=== PATIENT | female | born 1980 | race Caucasian/White ===

== ENCOUNTER → 2018-11-05 | Outpatient (CLI) | payer BC ==
[~2018-11-05] MED LIST: ACET325 PO; DIAZ5 PO; HYDACE5 PO; HYDR1TAB94 PO
[2018-11-05 16:53] LABS: Source, Urine Clean Catch
[2018-11-05 18:08] LABS: Bilirubin, Urine Neg (Neg); Blood, Urine Neg (Neg); Glucose Qualitative, Urine Neg (Neg); Ketones, Urine Neg (Neg); Leukocyte Esterase, Urine Neg (Neg); Nitrite, Urine Neg (Neg); Protein, Urine Neg (Neg); Specific Gravity, Urine 1.005 (1.003-1.022); Urobilinogen, Urine NORM (Normal)
[2018-11-05 18:27] LABS: Appearance, Urine Clear (Clear); Color, Urine Pale Yellow (P-Yellow)
[2018-11-09 16:06] LABS: HPV 16 Negative (Negative); HPV 18 Negative (Negative); HPV OTHER HR TYPES Negative (Negative)
== END | disposition home or self-care (01) ==
LOC: LAB 15:04 → LAB SHORT 15:04
PROVIDERS: Obstetrics & Gynecology
DX: Z01.419 Encounter for gynecological examination (general) (routine) without abnormal findings (principal); R30.0 Dysuria
CPT/HCPCS: 81003; 87624; G0123

== ENCOUNTER → 2019-07-20 | Outpatient (CLI) | payer BC ==
[2019-07-20 15:24] LABS: Anion Gap 10 mmol/L (6-16); Blood Urea Nitrogen 6 mg/dL (8-24); Bun/Creatinine Ratio 5.9 (12.0-20.0); CO2, Blood 26 mmol/L (21-32); Calcium, Blood 9.2 mg/dL (8.5-10.1); Chloride, Blood 96 mmol/L (98-108); Creatinine, Blood 1.02 mg/dL (0.40-1.00); Glomerular Filtration Rate >60 (60-); Glucose, Blood 103 mg/dL (70-99); Sodium, Blood 132 mmol/L (136-145)
[2019-07-20 15:28] LABS: BASOPHILS ABSOLUTE AUTO 0.05 K/mm3 (0.00-0.23); BASOPHILS PERCENT AUTO 0 % (0-2); EOSINOPHILS ABSOLUTE AUTO 0.01 K/mm3 (0.00-0.68); EOSINOPHILS PERCENT AUTO 0 % (0-6); Hematocrit 43.5 % (33.0-51.0); Hemoglobin 15.2 g/dL (11.5-16.0); IMMATURE GRAN ABSOLUTE AUTO 0.04 K/mm3 (0.00-0.10); IMMATURE GRAN PERCENT AUTO 0 % (0-1); LYMPHOCYTES ABSOLUTE AUTO 0.88 K/mm3 (0.84-5.20); LYMPHOCYTES PERCENT AUTO 7 % (21-46); MONOCYTES ABSOLUTE AUTO 2.01 K/mm3 (0.16-1.47); MONOCYTES PERCENT AUTO 17 % (4-13); Mean Corpuscular HGB 31.8 pg (26.0-34.0); Mean Corpuscular HGB Conc 34.9 g/dL (31.5-36.5); Mean Corpuscular Volume 91 fL (80-100); Mean Platelet Volume 9.1 fL (9.1-12.4); NEUTROPHILS ABSOLUTE AUTO 8.92 K/mm3 (1.96-9.15); NEUTROPHILS PERCENT AUTO 75 % (41-73); Platelet Count 245 K/mm3 (150-400); RDW Coefficient Variation 12.6 % (11.7-14.2); RDW Standard Deviation 41.6 fL (35.1-46.3); Red Blood Cell Count 4.78 M/mm3 (3.80-5.20); White Blood Cell Count 11.91 K/mm3 (4.00-11.30)
== END | disposition home or self-care (01) ==
LOC: LAB EV 15:16 → LAB SHORT 15:16
PROVIDERS: Family Medicine
DX: N12 Tubulo-interstitial nephritis, not specified as acute or chronic (principal)
CPT/HCPCS: 80048; 85025; 87077; 87086; 87186

== ENCOUNTER → 2019-08-26 | Outpatient (CLI) | payer BC | END | disposition home or self-care (01) | LOC: LAB EV 13:05 → LAB SHORT 13:05 | DX: N39.0 Urinary tract infection, site not specified (principal) | CPT/HCPCS: 87077; 87086; 87186 ==

== ENCOUNTER → 2019-09-21 | Outpatient (CLI) | payer BC | LOC: LAB 19:01 → LAB SHORT 19:01 | DX: R30.9 Painful micturition, unspecified (principal) | CPT/HCPCS: 87086 ==

== ENCOUNTER 2020-12-16 08:26 | Observation (INO) | payer BC ==
[~2020-12-16] VITALS: Ht 165.1 cm; Wt 63.5 kg
[2020-12-16 09:19] LABS: BASOPHILS ABSOLUTE AUTO 0.07 K/mm3 (0.00-0.23); BASOPHILS PERCENT AUTO 1 % (0-2); EOSINOPHILS ABSOLUTE AUTO 0.08 K/mm3 (0.00-0.68); EOSINOPHILS PERCENT AUTO 1 % (0-6); Hematocrit 38.2 % (33.0-51.0); Hemoglobin 12.9 g/dL (11.5-16.0); IMMATURE GRAN ABSOLUTE AUTO 0.02 K/mm3 (0.00-0.10); IMMATURE GRAN PERCENT AUTO 0 % (0-1); LYMPHOCYTES ABSOLUTE AUTO 1.72 K/mm3 (0.84-5.20); LYMPHOCYTES PERCENT AUTO 16 % (21-46); MONOCYTES ABSOLUTE AUTO 0.85 K/mm3 (0.16-1.47); MONOCYTES PERCENT AUTO 8 % (4-13); Mean Corpuscular HGB 31.5 pg (26.0-34.0); Mean Corpuscular HGB Conc 33.8 g/dL (31.5-36.5); Mean Corpuscular Volume 93 fL (80-100); NEUTROPHILS ABSOLUTE AUTO 8.17 K/mm3 (1.96-9.15); NEUTROPHILS PERCENT AUTO 75 % (41-73); RDW Coefficient Variation 13.7 % (11.7-14.2); RDW Standard Deviation 46.6 fL (35.1-46.3); Red Blood Cell Count 4.09 M/mm3 (3.80-5.20); White Blood Cell Count 10.91 K/mm3 (4.00-11.30)
[2020-12-16 09:30] LABS: Alanine Aminotransfer (ALT/SGP 18 U/L (12-78); Albumin, Blood 3.9 g/dL (3.4-5.0); Albumin/Globulin Ratio 1.2 (0.8-1.8); Alk Phos 38 U/L (50-136); Anion Gap 5 mmol/L (6-16); Aspartate Aminotrans (AST/SGOT 31 U/L (12-37); Bilirubin, Total 0.5 mg/dL (0.1-1.0); Blood Urea Nitrogen 12 mg/dL (8-24); CO2, Blood 25 mmol/L (21-32); Calcium, Blood 8.3 mg/dL (8.5-10.1); Chloride, Blood 107 mmol/L (98-108); Creatinine, Blood 0.71 mg/dL (0.40-1.00); Globulin, Blood 3.3 g/dL (2.2-4.0); Glomerular Filtration Rate >60 (60-); Glucose, Blood 91 mg/dL (70-99); Potassium, Blood 4.9 mmol/L (3.5-5.5); Sodium, Blood 137 mmol/L (136-145); Total Protein, Blood 7.2 g/dL (6.4-8.2)
[2020-12-16 09:41] LABS: Source, Urine Clean Catch
[2020-12-16 09:42] LABS: Mean Platelet Volume 10.2 fL (9.1-12.4); Platelet Count 170 K/mm3 (150-400)
[2020-12-16 09:45] LABS: Bilirubin, Urine Neg (Neg); Blood, Urine 2+ (Neg); Glucose Qualitative, Urine Neg (Neg); Ketones, Urine Neg (Neg); Leukocyte Esterase, Urine 1+ (Neg); Nitrite, Urine Pos (Neg); Protein, Urine 1+ (Neg); Specific Gravity, Urine 1.015 (1.003-1.022); Urobilinogen, Urine NORM (Normal); pH, Urine 6.5 (5.0-8.0)
[2020-12-16 09:51] LABS: Appearance, Urine Hazy (Clear); Color, Urine Yellow (P-Yellow)
[2020-12-16 09:52] LABS: Red Blood Cells, Urine 0-2 /hpf (0-2)
[2020-12-16 09:53] LABS: Bacteria Many /hpf; Squamous Epithelial Cells Mod /hpf (Few)
--- NOTE | 2020-12-16 12:30 | NUR ---
ADMISSION: REPORT RECEIVED FROM [employer]. PT TO UNIT AT ABOUT 1210. UPON ASSESSMENT, VSS, A/O. PT REPORTS PAIN TOLERABLE, ABD IS TENDER TO PALPATION. PT DENIES ANY VAGINAL BLEED. SPOKE WITH DR CARRILLO AT THIS TIME. PLAN TO MONITOR VS Q2 HRS AND AWAIT CBC RESULTS. WILL CTM.
[2020-12-16 12:58] LABS: SARS-Cov-2 (COVID-19) PCR, MMC NEGATIVE (NEGATIVE)
[2020-12-16 13:13] LABS: Hematocrit 33.5 % (33.0-51.0); Hemoglobin 11.5 g/dL (11.5-16.0); Mean Corpuscular HGB 31.9 pg (26.0-34.0); Mean Corpuscular HGB Conc 34.3 g/dL (31.5-36.5); Mean Corpuscular Volume 93 fL (80-100); Mean Platelet Volume 9.5 fL (9.1-12.4); Platelet Count 246 K/mm3 (150-400); RDW Coefficient Variation 13.7 % (11.7-14.2); RDW Standard Deviation 47.2 fL (35.1-46.3); Red Blood Cell Count 3.61 M/mm3 (3.80-5.20)
[2020-12-16 17:14] LABS: Hematocrit 32.4 % (33.0-51.0); Mean Corpuscular HGB 31.9 pg (26.0-34.0); Mean Corpuscular Volume 94 fL (80-100); Mean Platelet Volume 9.6 fL (9.1-12.4); Platelet Count 227 K/mm3 (150-400); RDW Coefficient Variation 13.8 % (11.7-14.2); RDW Standard Deviation 46.9 fL (35.1-46.3); Red Blood Cell Count 3.45 M/mm3 (3.80-5.20); White Blood Cell Count 9.37 K/mm3 (4.00-11.30)
--- NOTE | 2020-12-16 18:36 | NUR ---
DISCHARGE: PT DENIES DIZZINESS, VSS. PACKET PRINTED AND PT EDUCATED. IV DC'D WNL. PER DR. CARRILLO, PAIN MED TO BE E-FAXED TO [facility]. PT LEFT UNIT AT ABOUT 1750 ON FOOT WITH . PT DENIED NEED FOR WHEELCHAIR.
== END 2020-12-16 18:00 | disposition home or self-care (01) ==
LOC: ER 08:26 → ERHOLD 08:27 → SURS 11:54
PROVIDERS: Physician Assistant; ADMIT Obstetrics & Gynecology
DX: N83.201 Unspecified ovarian cyst, right side (principal); F17.200 Nicotine dependence, unspecified, uncomplicated; Z20.822 Contact with and (suspected) exposure to COVID-19
CPT/HCPCS: 36415; 76830; 76856; 80053; 81001; 81025; 83690; 85025; 85027; 87077; 87086; 87186; 93005; 93010; 96374; 96376; 99285-25; G0378; J3010; J7030; J7120; U0004

== ENCOUNTER 2021-02-05 11:46 | Day surgery (SDC) | payer BC ==
[~2021-02-05] VITALS: Ht 165.1 cm; Wt 61.1 kg
[2021-02-05] MEDS ORDERED: PROG100 PO (12:14)
[2021-02-05] MEDS ORDERED: ERGO400 PO (12:15)
[2021-02-05] MEDS ORDERED: Vitamin B Comple1 EA PO (12:15)
--- NOTE | 2021-02-05 12:46 | NUR ---
Ambulatory in Day Surgery History, Chart, Medications and Allergies reviewed before start of procedure.Pre-Op teaching done. Pt verbalizes understanding. Patient States Post-Procedure ride home has been arranged.
--- NOTE | 2021-02-05 16:56 | NUR ---
PT TO STEP, REPORTS INCREASED LOW ABD PAIN. MEDICATED PER ORDERS. DENIES NAUSEA. GIVEN PO FLUIDS AND PUDDING AND CRACKERS PER REQUEST. PT TOELRATES WELL. DRESSING X 3 TO ABD, CDI. GIVEN RX AND DC INSTRUCTIONS. PT VERBALIZES AN UNDERSTANDING s QUESTIONS. IV DC'D, CATH INTACT AND PRESSURE DRESSING APPLIED. DRESSED c ASSITANCE BY RN. TRANSFERS TO SLOWLY. REPORTS MILD PAIN c MOVEMENT, STS " IM FINE". OTD IN NAD VIA , ESCORTED BY RENATA. ADDITIONAL INSTRUCTIONS. GIVEN TO . VERBALIZES AN UNDERSTANDING. NO QUESTIONS. HOME c SAFE RIDE HOME.
--- NOTE | 2021-02-06 14:52 | NUR ---
02/06/21 1452 Roxanna Sweeney VERIFICATIONS: EDIT CHART.
== END 2021-02-05 23:02 | disposition home or self-care (01) ==
LOC: ORSCMMR 11:46
PROVIDERS: Obstetrics & Gynecology
PROC: 0UB14ZZ Excision of Left Ovary, Percutaneous Endoscopic Approach (ICD-10-PCS; principal; 2021-02-05 11:45)
PROC: 0UB64ZZ Excision of Left Fallopian Tube, Percutaneous Endoscopic Approach (ICD-10-PCS; principal; 2021-02-05 11:45)
PROC: 0DJD8ZZ Inspection of Lower Intestinal Tract, Via Natural or Artificial Opening Endoscopic (ICD-10-PCS; principal; 2021-02-05 11:45)
DX: N83.8 Other noninflammatory disorders of ovary, fallopian tube and broad ligament (principal); F17.210 Nicotine dependence, cigarettes, uncomplicated
CPT/HCPCS: 88305; 88331; A9270; J0171; J1100; J1885; J2250; J2405; J2704; J3010; J7120

== ENCOUNTER → 2022-06-27 | Outpatient (CLI) | payer BC ==
[~2022-06-27] MED LIST changes: +ERGO400 PO; +PROG100 PO; +Vitamin B Comple1 EA PO
[2022-06-27 12:53] LABS: Source, Urine Clean Catch
[2022-06-27 13:37] LABS: Appearance, Urine Clear (Clear); Bilirubin, Urine Neg (Neg); Blood, Urine Neg (Neg); Color, Urine Yellow (P-Yellow); Glucose Qualitative, Urine Neg (Neg); Ketones, Urine Neg (Neg); Leukocyte Esterase, Urine Neg (Neg); Nitrite, Urine Neg (Neg); Protein, Urine Neg (Neg); Urobilinogen, Urine NORM (Normal)
[2022-07-02 15:09] LABS: HPV 16 Negative (Negative); HPV 18 Negative (Negative); HPV OTHER HR TYPES Negative (Negative)
== END | disposition home or self-care (01) ==
LOC: LAB SHORT 09:45 → LAB 09:45
PROVIDERS: Obstetrics & Gynecology
DX: Z01.419 Encounter for gynecological examination (general) (routine) without abnormal findings (principal); R39.82 Chronic bladder pain
CPT/HCPCS: 81003; 87624; G0123